=== PATIENT | female | born 1965 | race Two or more races ===

== ENCOUNTER → 2017-04-23 | Outpatient (CLI) | payer OTHER ==
[2015-03-15 14:34] VITALS: BP 121/70
[~2017-04-23] MED LIST: GADOBUTROL 7.5 MMOL/7.5 ML VIAL IV ONE; Ibuprofen PO; MULT-18 PO; MULT-208 PO; OMEP40CA5 PO; TAMO20TA PO; TOMOXIFEN PO
--- NOTE | 2017-04-23 11:17 | RAD ---
EXAM: Brain MRI with and without contrast. HISTORY: Headaches. Breast cancer. TECHNIQUE: Multiplanar, multisequence magnetic resonance imaging of the brain was performed prior to and following the administration of 7.5 cc Gadavist intravenous contrast. COMPARISON: None. FINDINGS: There is no restricted diffusion to suggest acute or subacute infarction. There is no susceptibility effect to suggest hemorrhage. There is no mass effect or midline shift. There is no hydrocephalus. There are few scattered foci of signal change within the cerebral white matter, a nonspecific finding likely due to chronic small vessel disease. The orbits are unremarkable. There is minimal paranasal sinus because of thickening. There are normal flow voids within the cerebral vessels. There is no suspicious osseous lesion. IMPRESSION: 1. No acute intracranial finding. 2. Scattered foci of signal change within the cerebral white matter, a nonspecific finding likely due to chronic small vessel disease. Electronically signed by: Ivis Paniagua MD (04/23/2017 11:14 AM) [id number]
== END | disposition home or self-care (01) ==
LOC: MRI 09:39
PROVIDERS: ATTEND Internal Medicine Hematology & Oncology
DX: R51 Headache (principal); C50.919 Malignant neoplasm of unspecified site of unspecified female breast; Z85.3 Personal history of malignant neoplasm of breast
CPT/HCPCS: 70553

== ENCOUNTER → 2018-04-16 | Outpatient (CLI) | payer MEDICAID, MEDICARE, OTHER ==
[2015-03-15 14:34] VITALS: BP 121/70
[~2018-04-16] MED LIST changes: -GADOBUTROL 7.5 MMOL/7.5 ML VIAL IV ONE; +IOHEXOL 300 MG/ML 100ML VIAL. IV ONE
--- NOTE | 2018-04-16 16:37 | RAD ---
PQRS Compliance Statement: One or more of the following individualized dose reduction techniques were utilized for this examination: 1. Automated exposure control 2. Adjustment of the mA and/or kV according to patient size 3. Use of iterative reconstruction technique CT CHEST W/CONTRAST Clinical Indication: BREAST CANCER Comparison: None. Technique: Helical CT imaging of the chest is performed after 75 cc Omnipaque 300 IV contrast. Findings: The thyroid is symmetric. There are bilateral breast implants. There is no axillary adenopathy. No mediastinal or hilar adenopathy. The great vessels are normal caliber. Cardiac size is normal, no pericardial effusion. There is no pleural effusion. The central airways are patent. There is a 4 mm noncalcified nodule in the lateral left lower lobe, image 44. Lungs are otherwise clear. Cholecystectomy. Probable mild fatty infiltration of the liver. No compression fracture in the thoracic spine. IMPRESSION: There is a 4 mm noncalcified nodule in the lateral left lower lobe. Recommend comparison to prior imaging. If none available, given history of breast cancer recommend CT chest follow-up in 6 months. Electronically signed by: Lb Lindsey MD (04/16/2018 4:33 PM) [id number]
== END | disposition home or self-care (01) ==
LOC: CT 09:55
PROVIDERS: ATTEND Internal Medicine Hematology & Oncology
DX: E04.1 Nontoxic single thyroid nodule (principal); G62.0 Drug-induced polyneuropathy; Z85.3 Personal history of malignant neoplasm of breast
CPT/HCPCS: 71260; Q9967

== ENCOUNTER → 2019-12-11 | Outpatient (CLI) | payer MEDICARE ==
[2015-03-15 14:34] VITALS: BP 121/70
[~2019-12-11] MED LIST changes: -IOHEXOL 300 MG/ML 100ML VIAL. IV ONE; +OMEP40CA45 PO; -OMEP40CA5 PO
--- NOTE | 2019-12-11 15:18 | RAD ---
BONE SCAN WHOLE BODY History: Breast cancer Comparison: Brain MRI April 23, 2017, no more recent exam available Findings: Whole body bone scan was performed, patient injected with 26 mCi technetium 99m MDP. There is some increased radiotracer activity of the calvarium bilaterally greater of the parietal regions, slightly greater on the right than the left. Otherwise there is no focal suspicious radiotracer activity. There is asymmetric radiotracer activity of the joints bilaterally likely on degenerative basis. Impression: 1. There is nonspecific increased radiotracer activity of the calvarium greater on the right. MRI evaluation is recommended to assess if there is underlying lesion although there are no other findings particularly suspicious for osseous metastatic disease. Electronically signed by: Donnell Causey MD (12/11/2019 3:15 PM) [id number]
== END | disposition home or self-care (01) ==
LOC: NM 10:38
PROVIDERS: ATTEND Internal Medicine Hematology & Oncology
DX: C50.112 Malignant neoplasm of central portion of left female breast (principal); Z17.0 Estrogen receptor positive status [ER+]
CPT/HCPCS: 78306; A9503

== ENCOUNTER → 2019-12-19 | Outpatient (CLI) | payer MEDICARE ==
[2015-03-15 14:34] VITALS: BP 121/70
[~2019-12-19] MED LIST changes: +GADOTERATE 7.5 MMOL/15ML VIAL. IVP ONE
--- NOTE | 2019-12-19 09:35 | RAD ---
BRAIN WO/W CONTRAST Date: 12/19/2019 8:15 AM Indication: LEFT SIDED MIGRAINES, HX OF BREAST CANCER Comparison: None. Technique: Multiplanar multisequence MRI of the brain was performed with and without intravenous contrast using the standard protocol. 15 cc Dotarem contrast was administered intravenously during the exam. Findings: No acute infarct. No acute or chronic hemorrhage. The ventricles are normal in size and configuration without hydrocephalus. No abnormal enhancement. The scalp and calvarium are normal. The pituitary and sella are normal. No Chiari malformation. The visualized upper cervical spine is normal. The visualized orbits and globes are normal. The visualized paranasal sinuses are clear. The mastoid air cells are clear. Normal flow voids within the vertebral, basilar, and internal carotid arteries indicating patency. IMPRESSION: No evidence of intracranial metastatic disease. No acute infarct or hemorrhage. Electronically signed by: Donnell Medina MD (12/19/2019 9:31 AM) [id number]
== END | disposition home or self-care (01) ==
LOC: MRI 09:13
PROVIDERS: ATTEND Internal Medicine Hematology & Oncology
DX: C50.112 Malignant neoplasm of central portion of left female breast (principal); R94.8 Abnormal results of function studies of other organs and systems; Z17.0 Estrogen receptor positive status [ER+]; Z85.3 Personal history of malignant neoplasm of breast
CPT/HCPCS: 70553; A9575